=== PATIENT | male | born 1950 | race Caucasian/White ===

== ENCOUNTER → 2018-11-18 | Outpatient (CLI) | payer MEDICARE, OTHER ==
[~2018-11-18] MED LIST: FISH OIL PO; MULT-516 PO; VITAMIN D PO
== END | disposition home or self-care (01) ==
LOC: STAR 09:13
PROVIDERS: ATTEND Otolaryngology
DX: D23.20 Other benign neoplasm of skin of unspecified ear and external auricular canal (principal)
CPT/HCPCS: 93005

== ENCOUNTER → 2018-11-18 | Day surgery (SDC) | payer MEDICARE, OTHER ==
[~2018-11-18] VITALS: Ht 180.3 cm; Wt 88.6 kg
== END | disposition home or self-care (01) ==
LOC: SDC 09:17
PROVIDERS: ATTEND Otolaryngology
DX: Z02.9 Encounter for administrative examinations, unspecified (principal)

== ENCOUNTER 2018-11-26 06:37 | Day surgery (SDC) | payer MEDICARE, OTHER ==
[~2018-11-26] VITALS: Ht 180.3 cm; Wt 91.4 kg
[2018-11-26] MEDS ORDERED: LACTATED RINGERS 1,000 ML IV SCH (07:21)
[2018-11-26 07:24] VITALS: BP 143/86
[2018-11-26] MEDS ORDERED: MIDAZOLAM 1 MG/ML, 2ML ONE (07:52)
[2018-11-26] MEDS ORDERED: FENTANYL PF 100 MCG/2ML ONE (07:52)
[2018-11-26] MEDS ORDERED: SODIUM CHLORIDE 0.9% PF 10ML ONE (07:54)
[2018-11-26] MEDS ORDERED: CEFAZOLIN 1,000 MG ONE ×2 (07:54)
[2018-11-26] MEDS ORDERED: PROPOFOL 10 MG/ML, 20ML ONE (07:54)
[2018-11-26] MEDS ORDERED: LIDOCAINE 1%-EPI 1:100K, 30ML ONE (08:40)
[2018-11-26] MEDS ORDERED: PHENYLEPHRINE 10 MG/ML ONE (08:49)
[2018-11-26] MEDS ORDERED: ONDANSETRON 2MG/ML, 2ML IV PRN (09:00)
[2018-11-26] MEDS ORDERED: ONDANSETRON ODT 8 MG PO PRN (09:00)
[2018-11-26] MEDS ORDERED: PROMETHAZINE 25 MG/ML, 1ML IV PRN (09:00)
[2018-11-26] MEDS ORDERED: MEPERIDINE/PF 25MG/0.5ML IVPush PRN (09:00)
[2018-11-26] MEDS ORDERED: ACETAMINOPHEN 325 MG TABLET PO PRN (09:00)
[2018-11-26] MEDS ORDERED: FENTANYL PF 100 MCG/2ML IV PRN (09:00)
[2018-11-26] MEDS ORDERED: OXYcodone 5 MG/5 ML ORAL.SOL UDC PO PRN (09:00)
[2018-11-26] MEDS ORDERED: hydrALAzine 20 MG/ML, 1ML IV PRN (09:00)
[2018-11-26] MEDS ORDERED: PROMETHAZINE 12.5 MG SUPP PR PRN (09:00)
[2018-11-26] MEDS ORDERED: PROMETHAZINE 25 MG/ML, 1ML IM PRN ×2 (09:00)
[2018-11-26] MEDS ORDERED: PROMETHAZINE 25 MG SUPP PR PRN (09:00)
[2018-11-26] MEDS ORDERED: LABETALOL 5MG/ML, 20ML IV PRN (09:00)
[2018-11-26] MEDS ORDERED: MORPHINE SULFATE 4 MG/ML, 1ML IVPush PRN (09:00)
[2018-11-26] MEDS ORDERED: HYDROmorphone 2 MG/ML, 1ML IVPush PRN (09:00)
[2018-11-26] MEDS ORDERED: EPHEDRINE 50 MG/ML, 1ML ONE (09:22)
== END 2018-11-26 11:20 | disposition home or self-care (01) ==
LOC: OUT 06:37
PROVIDERS: ATTEND Otolaryngology
DX: H61.891 Other specified disorders of right external ear (principal); Z85.46 Personal history of malignant neoplasm of prostate
CPT/HCPCS: 69110; 88305; J0690; J2250; J2370; J2704; J3010; J3490; J7120